=== PATIENT | female | born 1990 | race African-American/Black ===

== ENCOUNTER 2016-09-27 23:29 | Emergency (ER) | payer SELFPAY ==
[~2016-09-27] VITALS: Ht 170.2 cm; Wt 65.8 kg
[~2016-09-27 23:29] MED LIST: BENZ100C PO; CYCL10TA2 PO; NAPR250T2 PO; ONDA4TAB10 SL; PRED50TA PO
[2016-09-27 23:35] VITALS: BP 129/80
[2016-09-28] MEDS ORDERED: IBUPROFEN 400 MG TABLET. PO ONE
[2016-09-28] MEDS ORDERED: ONDANSETRON ODT 4 MG TAB.RAPDIS. PO ONE
[2016-09-28] MEDS ORDERED: PROM12.56 PO (00:06)
--- NOTE | 2016-09-28 00:06 | PHYS DOC ---
Past Medical History Past Medical History: No Pertinent History, Other Additional Past Medical Histor: "high troponin" Past Surgical History: No Surgical History Alcohol Use: None Drug Use: None Adult General Chief Complaint Chief Complaint: NAUSEA/VOMITING/DIARRHA HPI HPI Patient is a 26 year old female who presents with nausea and vomiting of nonbloody nonbilious emesis that started last night after eating at a restaurant. She notes some intermittent crampy abdominal pain as well. She denies fever or chills, diarrhea, bloody stools, vaginal leading her discharge, dysuria, hematuria, back pain, chest pain, cough, sick contacts. She has taken no medications at home. Review of Systems Review of Systems Constitutional: Denies fever or chills [] Eyes: Denies change in visual acuity, redness, or eye pain [] HENT: Denies nasal congestion or sore throat [] Respiratory: Denies cough or shortness of breath [] Cardiovascular: No additional information not addressed in HPI [] GI: Denies bloody stools or diarrhea [] : Denies dysuria or hematuria [] Musculoskeletal: Denies back pain or joint pain [] Integument: Denies rash or skin lesions [] Neurologic: Denies headache, focal weakness or sensory changes [] Endocrine: Denies polyuria or polydipsia [] Current Medications Current Medications Current Medications Medications (Trade) Dose Ordered Sig/Andreina Start Time Stop Time Status Last Admin Dose Admin Ibuprofen (Motrin) 400 mg 1X ONCE 09/28/16 00:00 09/28/16 00:01 DC Ondansetron HCl (Zofran Odt) 4 mg 1X ONCE 09/28/16 00:00 09/28/16 00:01 DC Allergies Allergies Allergies Coded Allergies Type Severity Reaction Last Updated Verified acetaminophen Allergy Intermediate 02/10/14 Yes hydrocodone Allergy Intermediate 02/10/14 Yes Physical Exam Physical Exam Constitutional: Well developed, well nourished, no acute distress, non-toxic appearance. [] HENT: Normocephalic, atraumatic, bilateral external ears normal, oropharynx moist, nose normal. [] Eyes: PERRLA, EOMI. [] Neck: Normal range of motion, supple. [] Cardiovascular:Heart rate regular rhythm [] Lungs & Thorax: Bilateral breath sounds clear to auscultation [] Abdomen: Bowel sounds normal, soft, no tenderness. [] Skin: Warm, dry, no erythema, no rash. [] Back: No tenderness, no CVA tenderness. [] Extremities: No tenderness, ROM intact, no edema. [] Neurologic: Alert and oriented X 3, normal motor function, normal sensory function, no focal deficits noted. [] Psychologic: Affect normal, judgement normal, mood normal. [] Current Patient Data Lab Values Laboratory Tests Test 09/27/16 22:51 POC Urine HCG, Qualitative Hcg negative (Negative) Course & Med Decision Making Course & Med Decision Making Discussed supportive care. Return precautions given. She understands and agrees with plan. Dragon Disclaimer Dragon Disclaimer This electronic medical record was generated, in whole or in part, using a voice recognition dictation system. Departure Departure Impression: Primary Impression: Nausea and vomiting Disposition: HOME, SELF-CARE Condition: STABLE Referrals: NO PCP (PCP) Patient Instructions: Nausea and Vomiting, [id number] Additional Instructions: Take promethazine as needed for nausea. Take ibuprofen as needed for pain. Follow-up with your primary care doctor within one week. Return for any concerns. Scripts Promethazine Hcl (PROMETHAZINE HCL) 12.5 Mg Tablet 1 TAB PO Q6-8HRS for NAUSEA/VOMITING, #10 TAB 0 Refills Prov: El SEO MD 09/28/16 Problem Qualifiers Primary Impression: Nausea and vomiting Vomiting type: unspecified Vomiting Intractability: non-intractable Qualified Codes: R11.2 - Nausea with vomiting, unspecified El SEO MD Sep 28, 2016 00:06
== END 2016-09-28 00:35 | disposition home or self-care (01) ==
LOC: ER 23:29
DX: R11.2 Nausea with vomiting, unspecified (principal); R10.9 Unspecified abdominal pain; Z88.6 Allergy status to analgesic agent; Z88.5 Allergy status to narcotic agent
CPT/HCPCS: 81025; 99283; Q0162

== ENCOUNTER 2016-11-17 01:46 | Emergency (ER) | payer SELFPAY ==
[~2016-11-17] VITALS: Ht 170.2 cm; Wt 68.0 kg
[~2016-11-17 01:46] MED LIST changes: +PROM12.56 PO
[2016-11-17 02:22] VITALS: BP 119/68
[2016-11-17] MEDS ORDERED: PENICILLIN G BENZATHINE LA 1,200,000 UNIT/2 ML DISP.SYRIN. IM ONE (02:30)
--- NOTE | 2016-11-17 02:30 | PHYS DOC ---
Past Medical History Past Medical History: No Pertinent History, Other Additional Past Medical Histor: "high troponin" Past Surgical History: No Surgical History Additional Information: non smoker Alcohol Use: Occasionally Drug Use: None Adult General Chief Complaint Chief Complaint: SORE THROAT HPI HPI Patient is a 26 year old female who presents with sore throat. With the cough and then developed sore throat on Wednesday. Unknown temperature. No earache but her whole throat hurts. States it hurts to swallow. No skin rash. Review of Systems Review of Systems Constitutional: Denies fever or chills Eyes: Denies change in visual acuity, redness, or eye pain HENT: sore throat; no drooling Respiratory: Some cough, no shortness of breath Cardiovascular: No chest pain GI: Denies abdominal pain, nausea, vomiting, bloody stools or diarrhea : Denies dysuria or hematuria Musculoskeletal: Denies back pain or joint pain Integument: Denies rash or skin lesions Neurologic: Denies headache, focal weakness or sensory changes Current Medications Current Medications Current Medications Medications (Trade) Dose Ordered Sig/Andreina Start Time Stop Time Status Last Admin Dose Admin Penicillin G Benzathine (Bicillin L-A) 1,200,000 unit 1X ONCE 11/17/16 02:30 11/17/16 02:31 DC 11/17/16 02:37 1,200,000 UNIT Allergies Allergies Allergies Coded Allergies Type Severity Reaction Last Updated Verified acetaminophen Allergy Intermediate 02/10/14 Yes hydrocodone Allergy Intermediate 02/10/14 Yes Physical Exam Physical Exam Constitutional: Well developed, well nourished, no acute distress, non-toxic appearance. HENT: Normocephalic, atraumatic, bilateral external ears normal, oropharynx moist, POS pharyngeal exudates; no drooling, nose normal. Eyes: PERRLA, EOMI, conjunctiva normal, no discharge. Neck: Normal range of motion, no tenderness, supple, no stridor. Cardiovascular:Heart rate regular rhythm, no murmur Lungs & Thorax: Bilateral breath sounds clear to auscultation Abdomen: Bowel sounds normal, soft, no tenderness, no masses, no pulsatile masses. Skin: Warm, dry, no erythema, no rash. Back: No tenderness, no CVA tenderness. Extremities: No tenderness, no cyanosis, no clubbing, ROM intact, no edema. Neurologic: Alert and oriented X 3, normal motor function, normal sensory function, no focal deficits noted. Current Patient Data Vital Signs Vital Signs Date Time Temp Pulse Resp B/P (MAP) Pulse Ox O2 Delivery O2 Flow Rate FiO2 11/17/16 02:22 98.3 74 18 97 Room Air 98.3 Lab Values Current Medications Medications (Trade) Dose Ordered Sig/Andreina Route PRN Reason Start Time Stop Time Status Last Admin Dose Admin Penicillin G Benzathine (Bicillin L-A) 1,200,000 unit 1X ONCE IM 11/17/16 02:30 11/17/16 02:31 DC 11/17/16 02:37 1,200,000 UNIT Course & Med Decision Making Course & Med Decision Making differential diagnosis: strep; viral pharyngitis or mono. IM Penicillin dosed; Rx medrol dose rosanna. Rapid strep negative but treated due to bilateral exudative pharyngitis. I have spoken with the patient and/or caregivers. I have explained the patient' s condition, diagnosis and treatment plan based on the information available to me at this time. I have answered the patient's and/or caregiver's questions and addressed any concerns. The patient and/or caregivers have as good an understanding of the patient's diagnosis, condition and treatment plan as can be expected at this point. The patient's condition is stable and appropriate for discharge from the emergency department. The patient will pursue further outpatient evaluation with the primary care physician or other designated or consulting physician as outlined in the discharge instructions. The patient and/or caregivers are agreeable to this plan of care and follow-up instructions have been explained in detail. The patient and/or caregivers have received these instructions in written format and have expressed an understanding of the discharge instructions. The patient and/or caregivers are aware that any significant change in condition or worsening of symptoms should prompt an immediate return to this or the closest emergency department or a call to 911. Malick Disclaimer Dragon Disclaimer This electronic medical record was generated, in whole or in part, using a voice recognition dictation system. Departure Departure Impression: Primary Impression: Pharyngitis, acute Disposition: 01 HOME, SELF-CARE Condition: GOOD Referrals: NO PCP (PCP) Patient Instructions: Viral and Bacterial Pharyngitis Additional Instructions: YOU WERE GIVEN A PENICILLIN SHOT HERE. START THE STEROIDS IN THE AM Scripts Methylprednisolone (MEDROL) 4 Mg Tab.ds.pk 1 PKG PO UD, #1 PKG Prov: GAYATRI JAMA MD 11/17/16 GAYATRI JAMA MD Nov 17, 2016 02:31
[2016-11-17] MEDS ORDERED: METH4TAB2 PO (02:33)
[2016-11-17 07:22] LABS: NEGATIVE OBC STREP NEG; POSITIVE OBC STREP POS
== END 2016-11-17 03:02 | disposition home or self-care (01) ==
LOC: ER 01:46
DX: J02.9 Acute pharyngitis, unspecified (principal); Z88.6 Allergy status to analgesic agent; Z88.5 Allergy status to narcotic agent
CPT/HCPCS: 87070; 87880; 96372; 99283; J0561

== ENCOUNTER 2016-12-31 06:18 | Emergency (ER) | payer SELFPAY ==
[~2016-12-31] VITALS: Ht 170.2 cm; Wt 68.0 kg
[~2016-12-31 06:18] MED LIST changes: +METH4TAB2 PO; -NAPR250T2 PO; +NAPR250T6 PO
--- NOTE | 2016-12-31 06:38 | PHYS DOC ---
Past Medical History Past Medical History: No Pertinent History, Other Additional Past Medical Histor: "high troponin" Past Surgical History: No Surgical History Alcohol Use: Rarely Drug Use: None Adult General Chief Complaint Chief Complaint: Congestion HPI HPI Patient is a 26 year old -[place] female who presents with productive cough and fever. She states yesterday she noticed a fever 101 she's having a cough with yellow sputum. She states she went to work and the nurse practitioner at work thought she probably had bronchitis. She denies any body aches, nausea vomiting or chest pain other than when she is coughing. She bought some cough suppressants and been using these. 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 She denies any past medical history, denies smoking history. She denies any tenderness over her maxillary or frontal sinuses or headache. Review of Systems Review of Systems Constitutional: Denies chills, positive for subjective fevers Eyes: Denies change in visual acuity, redness, or eye pain [] HENT: Denies nasal congestion or sore throat [] Respiratory: Positive for cough Cardiovascular: No additional information not addressed in HPI [] GI: Denies abdominal pain, nausea, vomiting, bloody stools or diarrhea [] : Denies dysuria or hematuria [] Musculoskeletal: Denies back pain or joint pain [] Integument: Denies rash or skin lesions [] Neurologic: Denies headache, focal weakness or sensory changes [] Endocrine: Denies polyuria or polydipsia [] Allergies Allergies Allergies Coded Allergies Type Severity Reaction Last Updated Verified acetaminophen Allergy Intermediate 02/10/14 Yes hydrocodone Allergy Intermediate 02/10/14 Yes Physical Exam Physical Exam Constitutional: Well developed, well nourished, no acute distress, non-toxic appearance. [] HENT: Normocephalic, atraumatic, bilateral external ears normal, oropharynx moist, no oral exudates, nose normal. Non-tender over maxillary and frontal sinuses Eyes: PERRLA, EOMI, conjunctiva normal, no discharge. [] Neck: Normal range of motion, no tenderness, supple, no stridor. [] Cardiovascular:Heart rate regular rhythm, no murmur [] Lungs & Thorax: Bilateral breath sounds clear to auscultation [] Abdomen: Bowel sounds normal, soft, no tenderness, no masses, no pulsatile masses. [] Skin: Warm, dry, no erythema, no rash. [] Back: No tenderness, no CVA tenderness. [] Extremities: No tenderness, no cyanosis, no clubbing, ROM intact, no edema. [] Neurologic: Alert and oriented X 3, normal motor function, normal sensory function, no focal deficits noted. [] Psychologic: Affect normal, judgement normal, mood normal. [] Current Patient Data Vital Signs Vital Signs Date Time Temp Pulse Resp B/P (MAP) Pulse Ox O2 Delivery O2 Flow Rate FiO2 12/31/16 07:10 77 18 110/75 (87) 99 Room Air 12/31/16 06:25 97.8 97.8 Lab Values Laboratory Tests Test 12/31/16 00:00 Influenza Type A Antigen Negative (NEGATIVE) Influenza Type B Antigen Negative (NEGATIVE) EKG EKG [] Radiology/Procedures Radiology/Procedures [facility] [address] [place], [place] [id number] IMAGING REPORT Signed PATIENT: GAIL BROWN ACCOUNT: [id number] : 1990 LOCATION: ER AGE: 26 SEX: F EXAM STATUS: REG ER ORD. PHYSICIAN: JOSE PEREZ MD REASON: soa PROCEDURE: CHEST PA & LATERAL EXAM: Chest 2 views. HISTORY: Cough. COMPARISON: 01/20/2016. FINDINGS: Frontal and lateral views of the chest are obtained. There are no confluent infiltrates. There is no pneumothorax or pleural effusion. The heart is not enlarged. IMPRESSION: 1. No confluent infiltrates. DICTATED and SIGNED BY: MARIA ESTHER GUERRA MD DATE: 12/31/16711 CC: JOSE PEREZ MD; NO PCP ~ Impressions: Bronchitis Course & Med Decision Making Course & Med Decision Making Pertinent Labs and Imaging studies reviewed. (See chart for details) Chest x-ray, vitals, Ruthven influenzal negative. Patient being discharged home and encouraged use [id number] remedies, she being given a work note. She does not have a fever so I think she can go back to work when she feels better. Return precautions given for high fevers, and was weakness, shortness breath or other concerns. Patient's agreeable to the plan and being discharged home at this time. Dragon Disclaimer Dragon Disclaimer This electronic medical record was generated, in whole or in part, using a voice recognition dictation system. Departure Departure Impression: Primary Impression: Upper respiratory infection Disposition: 01 HOME, SELF-CARE Condition: STABLE Referrals: NO PCP (PCP) Patient Instructions: Acute Bronchitis, [id number] Additional Instructions: The chest x-ray and rapid influenza swab did not show any acute abnormality's. You likely have bronchitis and this is a viral syndrome that should pass over the next several days. You try [id number]-qjofiup remedies such as cough suppressants, Tylenol as needed. Your being given a work note. You'll back to work when you feel better and you don't have a fever. Here he did not have a fever. Return ER for severe pain, high fevers, shortness of breath, or other concerns. Problem Qualifiers Primary Impression: Upper respiratory infection URI type: unspecified viral URI Qualified Codes: J06.9 - Acute upper respiratory infection, unspecified; B97.89 - Other viral agents as the cause of diseases classified elsewhere JOSE PEREZ MD Dec 31, 2016 06:38
[2016-12-31 07:10] VITALS: BP 110/75
--- NOTE | 2016-12-31 07:15 | RAD ---
EXAM: Chest 2 views. HISTORY: Cough. COMPARISON: 01/20/2016. FINDINGS: Frontal and lateral views of the chest are obtained. There are no confluent infiltrates. There is no pneumothorax or pleural effusion. The heart is not enlarged. IMPRESSION: 1. No confluent infiltrates.
[2016-12-31 08:17] LABS: OBC FLU VALID
== END 2016-12-31 08:31 | disposition home or self-care (01) ==
LOC: ER 06:18
DX: J06.9 Acute upper respiratory infection, unspecified (principal); B97.89 Other viral agents as the cause of diseases classified elsewhere; Z88.5 Allergy status to narcotic agent; Z88.6 Allergy status to analgesic agent
CPT/HCPCS: 71020; 87804; 99285-25

== ENCOUNTER 2017-01-09 07:13 | Emergency (ER) | payer SELFPAY ==
[~2017-01-09] VITALS: Ht 170.2 cm; Wt 68.0 kg
[2017-01-09 07:37] VITALS: BP 130/70
[2017-01-09 07:44] LABS: BILIRUBIN,URINE NEGATIVE (NEG); GLUCOSE,URINE NEGATIVE (NEG); NITRITE,URINE NEGATIVE (NEG); PROTEIN,URINE NEGATIVE (NEG-TRACE); UROBILINOGEN,URINE 0.2 mg/dL (0.2 mg/dL)
--- NOTE | 2017-01-09 07:53 | PHYS DOC ---
Past Medical History Past Medical History: No Pertinent History, Other Additional Past Medical Histor: "high troponin" Past Surgical History: No Surgical History Alcohol Use: Rarely Drug Use: None Adult General Chief Complaint Chief Complaint: VAGINAL BLEEDING HPI HPI Patient is a 26 year old female presents to the emergency department with a history of vaginal bleeding that started 2 days ago. Patient states in the last 24 hours she had light headedness and dizziness. She states last night she had a large amount of vaginal bleeding that soaked thru the bed linen. She states she has not had sexual intercourse for the last year. Denies vaginal discharge other than bleeding. She states she is on the depo and has been for some time. She states she has not had a menstrual cycle since she started depo. She denies any STD hx. Patient denies lower abdominal cramping. Review of Systems Review of Systems Constitutional: Denies fever or chills [] Eyes: Denies change in visual acuity, redness, or eye pain [] HENT: Denies nasal congestion or sore throat [] Respiratory: Denies cough or shortness of breath [] Cardiovascular: No additional information not addressed in HPI [] GI: lower abdominal pain cramping, denies nausea, vomiting, bloody stools or diarrhea [] : Denies dysuria or hematuria. C/o vaginal bleeding Musculoskeletal: Denies back pain or joint pain [] Integument: Denies rash or skin lesions [] Neurologic: Denies headache, focal weakness or sensory changes [] Endocrine: Denies polyuria or polydipsia [] Allergies Allergies Allergies Coded Allergies Type Severity Reaction Last Updated Verified acetaminophen Allergy Intermediate 02/10/14 Yes hydrocodone Allergy Intermediate 02/10/14 Yes Physical Exam Physical Exam Constitutional: Well developed, well nourished, no acute distress, non-toxic appearance. [] HENT: Normocephalic, atraumatic, bilateral external ears normal, oropharynx moist, no oral exudates, nose normal. [] Eyes: PERRLA, EOMI, conjunctiva normal, no discharge. [] Neck: Normal range of motion, no tenderness, supple, no stridor. [] Cardiovascular:Heart rate regular rhythm, no murmur [] Lungs & Thorax: Bilateral breath sounds clear to auscultation [] Abdomen: Bowel sounds normal, soft, no tenderness, no masses, no pulsatile masses. [] Skin: Warm, dry, no erythema, no rash. [] Extremities: No tenderness, no cyanosis, no clubbing, ROM intact, no edema. [] Neurologic: Alert and oriented X 3, normal motor function, normal sensory function, no focal deficits noted. [] Psychologic: Affect normal, judgement normal, mood normal. [] Vaginal exam completed with PETTY Mendenhall at bedside. Speculum exam with minimal vaginal bleeding noted. Manual exam with bilateral and CMT noted. Current Patient Data Vital Signs Vital Signs Date Time Temp Pulse Resp B/P (MAP) Pulse Ox O2 Delivery O2 Flow Rate FiO2 01/09/17 07:37 98.3 71 18 130/70 (90) 71 Room Air 98.3 Lab Values Laboratory Tests Test 01/09/17 07:30 01/09/17 07:34 01/09/17 07:53 Urine Collection Type Unknown Urine Color Yellow Urine Clarity Clear Urine pH 6.0 Urine Specific Ainsworth 1.020 Urine Protein Negative mg/dL (NEG-TRACE) Urine Glucose (UA) Negative mg/dL (NEG) Urine Ketones (Stick) Negative mg/dL (NEG) Urine Blood Moderate (NEG) Urine Nitrite Negative (NEG) Urine Bilirubin Negative (NEG) Urine Urobilinogen Dipstick 0.2 mg/dL (0.2 mg/dL) Urine Leukocyte Esterase Negative (NEG) Urine RBC Occ /HPF (0-2) Urine WBC 0 /HPF (0-4) Urine Squamous Epithelial Cells Few /LPF Urine Bacteria 0 /HPF (0-FEW) Urine Mucus Mod /LPF POC Urine HCG, Qualitative Hcg negative (Negative) White Blood Count 6.2 x10^3/uL (4.0-11.0) Red Blood Count 3.94 x10^6/uL (3.50-5.40) Hemoglobin 13.7 g/dL (12.0-15.5) Hematocrit 40.7 % (36.0-47.0) Mean Corpuscular Volume 103 fL (79-100) H Mean Corpuscular Hemoglobin 35 pg (25-35) Mean Corpuscular Hemoglobin Concent 34 g/dL (31-37) Red Cell Distribution Width 12.6 % (11.5-14.5) Platelet Count 259 x10^3/uL (140-400) Neutrophils (%) (Auto) 56 % (31-73) Lymphocytes (%) (Auto) 35 % (24-48) Monocytes (%) (Auto) 8 % (0-9) Eosinophils (%) (Auto) 1 % (0-3) Basophils (%) (Auto) 0 % (0-3) Neutrophils # (Auto) 3.4 x10^3uL (1.8-7.7) Lymphocytes # (Auto) 2.2 x10^3/uL (1.0-4.8) Monocytes # (Auto) 0.5 x10^3/uL (0.0-1.1) Eosinophils # (Auto) 0.1 x10^3/uL (0.0-0.7) Basophils # (Auto) 0.0 x10^3/uL (0.0-0.2) Laboratory Tests 01/09/17 07:53 Microbiology 01/09/17 Wet Prep - Final, Complete EKG EKG [] Radiology/Procedures Radiology/Procedures [] [address] [place], [place] [id number] IMAGING REPORT Signed PATIENT: GAIL BROWN ACCOUNT: [id number] : 1990 LOCATION: ER AGE: 26 SEX: F EXAM STATUS: REG ER ORD. PHYSICIAN: DRU FAIRCHILD APRN REASON: vaginal bleeding irregular, cramping, pelvic pain PROCEDURE: PELVIS W/TV Pelvic ultrasound, 01/09/2017: History: Heavy bleeding Transabdominal and and transvaginal scans were obtained. The pelvic structures were poorly visualized on the transabdominal scans due to lack of bladder distention. The transvaginal scans show the uterus to measure approximately 5.6 cm in length. There is a 2.8 cm mildly heterogeneous mass in the myometrium posteriorly with mild distortion of the central uterine echo complex. This is most likely a uterine fibroid. The central uterine echo complex was not clearly delineated, however, it does not appear to be thickened. The ovaries are of normal size. Small follicular cysts are evident in the ovaries. There is blood flow in both ovaries. No adnexal mass is seen. There is a trace amount of free fluid in the pelvis. This amount of fluid can be on a physiologic basis. IMPRESSION: Small uterine mass most compatible with a fibroid. DICTATED and SIGNED BY: ALEJANDRA ORLANDO MD DATE: 01/09/17 1014 CC: DRU FAIRCHILD APRN; NO PCP; NON,STAFF ~ Course & Med Decision Making Course & Med Decision Making Pertinent Labs and Imaging studies reviewed. (See chart for details) Patient's urine was negative for , urine was positive for leukocyte Estrace small amount. Patient will be provided with Macrobid. Patient did have an ultrasound identified fibroids. Patient will be discharged home with recommendations to follow-up with PRIMARY EDUCATION PROFESSOR within the next week. Patient was provided with information in regards to fibroids. Patient will be discharged home with recommendations to drink plenty of fluids such as water and cranberry juice. Avoid cranberry juice cocktail, carbonated beverages, citrus fruits, alcohol or caffeine as these are considered irritants to the bladder. Patient agrees with discharge instructions treatment regimens and follow-up recommendations. Signs and symptoms to return back to emergency department been provided. All questions and concerns have been answered at patient's bedside. [] Dragon Disclaimer Dragon Disclaimer This electronic medical record was generated, in whole or in part, using a voice recognition dictation system. Departure Departure Impression: Primary Impression: Uterine fibroid Additional Impression: UTI (urinary tract infection) Disposition: 01 HOME, SELF-CARE Condition: STABLE Referrals: NO PCP (PCP) RAMÓN MOLINA MD Patient Instructions: Urinary Tract Infection, Huoe-te-Cvoy, Uterine Fibroid, [id number] Additional Instructions: Activity as tolerated. Medication as prescribed. Drink plenty of fluids such as water and cranberry juice. Avoid cranberry juice cocktail, carbonate beverages, citrus fruits, alcohol, and caffeine as these are considered irritants to the bladder. Follow-up with PRIMARY EDUCATION PROFESSOR within the next week. Return back to emergency prior signs symptoms of become worse. Scripts Nitrofurantoin Monohyd/M-Cryst (MACROBID 100 MG CAPSULE) 100 Mg Capsule 1 CAP PO BID, #14 CAP Prov: DRU FAIRCHILD APRN 01/09/17 Problem Qualifiers Primary Impression: Uterine fibroid Uterine leiomyoma location: unspecified location Qualified Codes: D25.9 - Leiomyoma of uterus, unspecified Additional Impression: UTI (urinary tract infection) Urinary tract infection type: site unspecified Hematuria presence: without hematuria Qualified Codes: N39.0 - Urinary tract infection, site not specified DRU FAIRCHILD APRN Jan 09, 2017 07:53
[2017-01-09 08:07] LABS: BACTERIA,URINE 0 /HPF (0-FEW); RBC,URINE OCC /HPF (0-2); SQUAMOUS EPITHELIAL CELL,UR FEW /LPF; WBC,URINE 0 /HPF (0-4)
[2017-01-09 09:34] LABS: BASO % 0 % (0-3); EOS % 1 % (0-3); HEMATOCRIT 40.7 % (36.0-47.0); HEMOGLOBIN 13.7 g/dL (12.0-15.5); LYMPH # 2.2 x10^3/uL (1.0-4.8); LYMPH % 35 % (24-48); MEAN CORPUSCULAR HEMOGLOBIN 35 pg (25-35); MEAN CORPUSCULAR HGB CONC 34 g/dL (31-37); MEAN CORPUSCULAR VOLUME 103 fL (79-100); MONO % 8 % (0-9); NEUT % 56 % (31-73); PLATELET COUNT 259 x10^3/uL (140-400); RED BLOOD COUNT 3.94 x10^6/uL (3.50-5.40); RED CELL DISTRIBUTION WIDTH 12.6 % (11.5-14.5); WHITE BLOOD COUNT 6.2 x10^3/uL (4.0-11.0)
--- NOTE | 2017-01-09 10:21 | RAD ---
Pelvic ultrasound, 01/09/2017: History: Heavy bleeding Transabdominal and and transvaginal scans were obtained. The pelvic structures were poorly visualized on the transabdominal scans due to lack of bladder distention. The transvaginal scans show the uterus to measure approximately 5.6 cm in length. There is a 2.8 cm mildly heterogeneous mass in the myometrium posteriorly with mild distortion of the central uterine echo complex. This is most likely a uterine fibroid. The central uterine echo complex was not clearly delineated, however, it does not appear to be thickened. The ovaries are of normal size. Small follicular cysts are evident in the ovaries. There is blood flow in both ovaries. No adnexal mass is seen. There is a trace amount of free fluid in the pelvis. This amount of fluid can be on a physiologic basis. IMPRESSION: Small uterine mass most compatible with a fibroid.
[2017-01-09] MEDS ORDERED: NITR100C62 PO (10:38)
== END 2017-01-09 10:49 | disposition home or self-care (01) ==
LOC: ER 07:13
DX: D25.9 Leiomyoma of uterus, unspecified (principal); N39.0 Urinary tract infection, site not specified; Z88.6 Allergy status to analgesic agent; Z88.5 Allergy status to narcotic agent
CPT/HCPCS: 36415; 76830; 76856; 81001; 81025; 85025; 87491; 87591; 99285; Q0111

== ENCOUNTER 2017-05-08 21:12 | Emergency (ER) | payer BC ==
[2017-05-08] MEDS: IBUPROFEN 800 MG TABLET. PO ×2 (21:42)
== END 2017-05-08 21:45 | disposition home or self-care (01) ==
LOC: ER 21:12
DX: K05.10 Chronic gingivitis, plaque induced (principal); Z88.6 Allergy status to analgesic agent; Z88.5 Allergy status to narcotic agent
CPT/HCPCS: 99283

== ENCOUNTER 2017-05-29 20:14 | Emergency (ER) | payer BC ==
[2017-05-29 20:36] LABS: BILIRUBIN,URINE NEGATIVE (NEG); COLOR,URINE YELLOW; GLUCOSE,URINE NEGATIVE (NEG); NITRITE,URINE NEGATIVE (NEG); PROTEIN,URINE NEGATIVE (NEG-TRACE)
[2017-05-29 20:42] LABS: NEG OBC UR NEG; POS OBC UR POS; U PREG PATIENT NEGATIVE (NEG)
[2017-05-29 20:48] LABS: CLARITY,URINE CLEAR
[2017-05-29 20:50] LABS: BACTERIA,URINE FEW /HPF (0-FEW); RBC,URINE RARE /HPF (0-2); SQUAMOUS EPITHELIAL CELL,UR MOD /LPF; WBC,URINE 0 /HPF (0-4)
== END 2017-05-29 21:18 | disposition home or self-care (01) ==
LOC: ER 20:14
DX: N89.8 Other specified noninflammatory disorders of vagina (principal); Z88.5 Allergy status to narcotic agent
CPT/HCPCS: 81001; 81025; 87491; 87591; 99284

== ENCOUNTER 2018-02-09 03:02 | Emergency (ER) | payer SELFPAY ==
[~2018-02-09] VITALS: Ht 170.2 cm; Wt 75.3 kg
[2018-02-09 03:02] VITALS: BP 116/58
[~2018-02-09 03:02] MED LIST changes: +CEPH500T PO; +FLUC150T PO; +HYDR-971 PO; +NAPR-683 PO; +NITR100C62 PO; +PENI500T PO
--- NOTE | 2018-02-09 03:04 | PHYS DOC ---
Past Medical History Past Medical History: No Pertinent History, Other Additional Past Medical Histor: "high troponin" Past Surgical History: Other Additional Past Surgical Histo: L INDEX FINGER Additional Information: Nonsmoker Alcohol Use: None Drug Use: None Adult General Chief Complaint Chief Complaint: DENTAL PROBLEM HPI HPI Patient is a 27 year old female presents to the ED due to dental pain. She states that yesterday she ate some stale chips the pain started thereafter. She made a dentist appointment for Wednesday, but the pain got too severe to tolerate which caused her to come to the ED. She rates the severity of the pain as 10/10 , radiating to her head. She denies other associated symptoms, including fever. She denies any trauma or accidents to her mouth, as well as bleeding or discharge from the lower left molar region. Denies . Review of Systems Review of Systems Constitutional: Denies fever or chills [] HENT: Denies nasal congestion or sore throat. Reports left lower dental pain. Complete systems were reviewed and found to be within normal limits, except as documented in this note. Current Medications Current Medications Current Medications Medications (Trade) Dose Ordered Sig/Andreina Start Time Stop Time Status Last Admin Dose Admin Bupivacaine HCl/ Epinephrine Bitart (Sensorcain-Mpf Epi 0.5%-1:[id number]) 30 ml 1X ONCE 02/09/18 03:30 02/09/18 03:31 DC 02/09/18 03:32 30 ML Dexamethasone (Decadron) 10 mg 1X ONCE 02/09/18 03:30 02/09/18 03:31 DC 02/09/18 03:27 10 MG Penicillin V Potassium (Veetid) 500 mg 1X ONCE 02/09/18 03:15 02/09/18 03:22 DC 02/09/18 03:27 500 MG Allergies Allergies Allergies Coded Allergies Type Severity Reaction Last Updated Verified hydrocodone Allergy Intermediate 02/10/14 Yes Physical Exam Physical Exam Constitutional: Well developed, well nourished, no acute distress, non-toxic appearance. [] HENT: Normocephalic, atraumatic,, oropharynx moist, moderate dental cavities in various teeth, including left lower molar. Eyes: Conjunctiva normal, no discharge. [] Neck: Normal range of motion, no tenderness, no lymphadenopathy Lungs & Thorax: Bilateral breath sounds clear to auscultation [] Skin: Warm, dry, no erythema, no rash. [] Neurologic: Alert and oriented X 3, Psychologic: Affect normal, judgement normal, mood normal. [] Current Patient Data Vital Signs Vital Signs Date Time Temp Pulse Resp B/P (MAP) Pulse Ox O2 Delivery O2 Flow Rate FiO2 02/09/18 03:02 98.1 75 14 116/58 (77) 98 Room Air 98.1 EKG EKG [] Radiology/Procedures Radiology/Procedures [] Course & Med Decision Making Course & Med Decision Making 27-year-old female presents to the ED due to dental pain. Dental mony noted to area. Dental block provided for anesthesia, as well as a course of antibiotics and dexamethasone PO1. Patient stable for discharge with outpatient follow-up with PCP. Discussed findings and plan with patient, who acknowledges understanding and agreement. Dragon Disclaimer Dragon Disclaimer This electronic medical record was generated, in whole or in part, using a voice recognition dictation system. Departure Departure Impression: Primary Impression: Dental caries Additional Impression: Dentalgia Disposition: HOME, SELF-CARE Condition: IMPROVED Referrals: NO PCP (PCP) Patient Instructions: Dental Caries-Brief, Toothache-Brief Scripts Fluconazole (DIFLUCAN) 150 Mg Tablet 1 TAB PO ONCE, #2 TAB Take initial dose today and then secondary dose after completion of antibiotics. Prov: HARPER PYLE DO 02/09/18 Chlorhexidine Gluconate (PERIDEX) 15 Ml Mouthwash 15 ML PO BID, #946 ML Prov: HARPER PYLE DO 02/09/18 Penicillin V Potassium (PENICILLIN V POTASSIUM) 500 Mg Tablet 1 TAB PO QID for 7 Days, #28 TAB Prov: HARPER PYLE DO 02/09/18 Additional Procedures Progress Dental block Procedure performed by physician and medical student. Timeout performed. Hand hygiene utilized. 0.5% bupivacaine with epinephrine infiltrated x 5ml to left inferior alveolar nerve with interval resolution of symptoms. Pt tolerated the procedure well and without difficulty. Problem Qualifiers HARPER PYLE DO Feb 09, 2018 03:04
[2018-02-09] MEDS ORDERED: CHLO15MO2 PO (03:15)
[2018-02-09] MEDS ORDERED: PENICILLIN V K 250 MG TABLET. PO ONE (03:15)
[2018-02-09] MEDS ORDERED: PENI500T PO (03:15)
[2018-02-09] MEDS ORDERED: FLUC150T PO (03:25)
[2018-02-09] MEDS ORDERED: DEXAMETHASONE 4 MG TABLET PO ONE (03:30)
[2018-02-09] MEDS ORDERED: BUPIVAC MPF-EPI 0.5%-1:200000 30 ML VIAL. INJ ONE (03:30)
== END 2018-02-09 03:46 | disposition home or self-care (01) ==
LOC: ER 03:02
DX: K02.9 Dental caries, unspecified (principal); Z88.5 Allergy status to narcotic agent
CPT/HCPCS: 64400; 99284; J3490; J8540

== ENCOUNTER 2019-05-12 07:25 | Emergency (ER) | payer SELFPAY ==
[~2019-05-12] VITALS: Ht 170.2 cm; Wt 77.2 kg
[~2019-05-12 07:25] MED LIST changes: +CHLO15MO2 PO; +HYDR-3164 PO; -HYDR-971 PO; -PROM12.56 PO; +PROM12.58 PO
[2019-05-12] MEDS ORDERED: ASPIRIN 325 MG TABLET PO ONE (08:00)
--- NOTE | 2019-05-12 08:03 | PHYS DOC ---
Past Medical History Past Medical History: No Pertinent History, Other Additional Past Medical Histor: "high troponin" Past Surgical History: Other Additional Past Surgical Histo: L INDEX FINGER Smoking Status: Never Smoker Alcohol Use: None Drug Use: None Adult General Chief Complaint Chief Complaint: CHEST PAIN [facility] HPI Patient is a 28 year old female without history of medical problem who presents with complaint of chest pain. She complaining of intermittent episodes of substernal aching chest pain for the last 1 week that usually happens several times a day and lasts for several hours and getting better with baby aspirin. Patient denies radiation of pain, nausea, dizziness, palpitation, cough and congestion, fever and chills. Patient complaining of intermittent episodes of shortness of breath and generalized weakness during episodes of chest pain. Patient states she had the same chest pain 3- 4 years ago and was admitted for one week at Hospital because of elevation of troponin and had extensive evaluation without abnormal finding. Patient complaining of unintentional losing 25 pounds for the last 2 weeks. Review of Systems Review of Systems Constitutional: Denies fever or chills [] Eyes: Denies change in visual acuity, redness, or eye pain [] HENT: Denies nasal congestion or sore throat [] Respiratory: Denies cough, reports shortness of breath [] Cardiovascular: No additional information not addressed in HPI [] GI: Denies abdominal pain, nausea, vomiting, bloody stools or diarrhea [] : Denies dysuria or hematuria [] Musculoskeletal: Denies back pain or joint pain [] Integument: Denies rash or skin lesions [] Neurologic: Denies headache, focal weakness or sensory changes [] Endocrine: Denies polyuria or polydipsia [] All other systems were reviewed and found to be within normal limits, except as documented in this note. Current Medications Current Medications Current Medications Medications (Trade) Dose Ordered Sig/Andreina Start Time Stop Time Status Last Admin Dose Admin Aspirin (Areli Aspirin) 325 mg 1X ONCE 05/12/19 08:00 05/12/19 08:01 DC 05/12/19 08:46 325 MG Lorazepam (Ativan Inj) 0.5 mg 1X ONCE 05/12/19 08:15 05/12/19 08:16 DC 05/12/19 08:46 0.5 MG Allergies Allergies Allergies Coded Allergies Type Severity Reaction Last Updated Verified hydrocodone Allergy Intermediate 02/10/14 Yes Physical Exam Physical Exam Constitutional: Well developed, well nourished, mild distress, non-toxic appearance. [] HENT: Normocephalic, atraumatic, bilateral external ears normal, oropharynx moist, no oral exudates, nose normal. [] Eyes: PERRLA, EOMI, conjunctiva normal, no discharge. [] Neck: Normal range of motion, no tenderness, supple, no stridor. [] Cardiovascular:Heart rate regular rhythm, no murmur [] Lungs & Thorax: Bilateral breath sounds clear to auscultation [] Abdomen: Bowel sounds normal, soft, no tenderness, no masses, no pulsatile masses. [] Skin: Warm, dry, no erythema, no rash. [] Back: No tenderness, no CVA tenderness. [] Extremities: No tenderness, no cyanosis, no clubbing, ROM intact, no edema. [] Neurologic: Alert and oriented X 3, normal motor function, normal sensory function, no focal deficits noted. [] Psychologic: Affect anxious, judgement normal, mood normal. [] Current Patient Data Vital Signs Vital Signs Date Time Temp Pulse Resp B/P (MAP) Pulse Ox O2 Delivery O2 Flow Rate FiO2 05/12/19 10:44 66 105/57 (73) 99 Room Air 05/12/19 07:30 98.0 17 98.0 Lab Values Laboratory Tests Test 05/12/19 08:08 05/12/19 09:30 White Blood Count 4.5 x10^3/uL (4.0-11.0) Red Blood Count 4.07 x10^6/uL (3.50-5.40) Hemoglobin 13.5 g/dL (12.0-15.5) Hematocrit 40.5 % (36.0-47.0) Mean Corpuscular Volume 99 fL (79-100) Mean Corpuscular Hemoglobin 33 pg (25-35) Mean Corpuscular Hemoglobin Concent 33 g/dL (31-37) Red Cell Distribution Width 12.8 % (11.5-14.5) Platelet Count 227 x10^3/uL (140-400) Neutrophils (%) (Auto) 45 % (31-73) Lymphocytes (%) (Auto) 44 % (24-48) Monocytes (%) (Auto) 8 % (0-9) Eosinophils (%) (Auto) 2 % (0-3) Basophils (%) (Auto) 1 % (0-3) Neutrophils # (Auto) 2.0 x10^3/uL (1.8-7.7) Lymphocytes # (Auto) 2.0 x10^3/uL (1.0-4.8) Monocytes # (Auto) 0.4 x10^3/uL (0.0-1.1) Eosinophils # (Auto) 0.1 x10^3/uL (0.0-0.7) Basophils # (Auto) 0.0 x10^3/uL (0.0-0.2) Prothrombin Time 14.2 SEC (11.7-14.0) H Prothrombin Time INR 1.1 (0.8-1.1) D-Dimer (Audra) 0.27 ug/mlFEU (0.00-0.50) Sodium Level 143 mmol/L (136-145) Potassium Level 3.6 mmol/L (3.5-5.1) Chloride Level 103 mmol/L (98-107) Carbon Dioxide Level 28 mmol/L (21-32) Anion Gap 12 (6-14) Blood Urea Nitrogen 5 mg/dL (7-20) L Creatinine 0.8 mg/dL (0.6-1.0) Estimated GFR (Cockcroft-Gault) 102.6 BUN/Creatinine Ratio 6 (6-20) Glucose Level 104 mg/dL (70-99) H Calcium Level 9.0 mg/dL (8.5-10.1) Magnesium Level 2.0 mg/dL (1.8-2.4) Total Bilirubin 1.4 mg/dL (0.2-1.0) H Aspartate Amino Transferase (AST) 15 U/L (15-37) Alanine Aminotransferase (ALT) 12 U/L (14-59) L Alkaline Phosphatase 98 U/L (46-116) Creatine Kinase 106 U/L (26-192) Troponin I Quantitative < 0.017 ng/mL (0.000-0.055) GM-Enw-U-Type Natriuretic Peptide 14 pg/mL (0-124) Total Protein 7.0 g/dL (6.4-8.2) Albumin 3.5 g/dL (3.4-5.0) Albumin/Globulin Ratio 1.0 (1.0-1.7) Lipase 77 U/L (73-393) Urine Collection Type Unknown Urine Color Yellow Urine Clarity Clear Urine pH 7.0 Urine Specific Rives 1.010 Urine Protein Negative mg/dL (NEG-TRACE) Urine Glucose (UA) Negative mg/dL (NEG) Urine Ketones (Stick) Negative mg/dL (NEG) Urine Blood Small (NEG) Urine Nitrite Negative (NEG) Urine Bilirubin Negative (NEG) Urine Urobilinogen Dipstick 1.0 mg/dL (0.2 mg/dL) Urine Leukocyte Esterase Negative (NEG) Urine RBC 1-2 /HPF (0-2) Urine WBC Rare /HPF (0-4) Urine Squamous Epithelial Cells Mod /LPF Urine Bacteria 0 /HPF (0-FEW) Urine Opiates Screen Neg (NEG) Urine Methadone Screen Neg (NEG) Urine Barbiturates Neg (NEG) Urine Phencyclidine Screen Neg (NEG) Urine Amphetamine/Methamphetamine Neg (NEG) Urine Benzodiazepines Screen Neg (NEG) Urine Cocaine Screen Neg (NEG) Urine Cannabinoids Screen Neg (NEG) Urine Ethyl Alcohol Neg (NEG) Laboratory Tests 05/12/19 08:08 Laboratory Tests 05/12/19 08:08 EKG EKG EKG interpreted by me. EKG at 0734 showed normal sinus rhythm at rate of 80, normal FL and QT intervals, no acute ST and T-wave elevation. Radiology/Procedures Radiology/Procedures [facility] [address] [place] [address] IMAGING REPORT Signed PATIENT: GAIL BROWN ACCOUNT: [id number] : 1990 LOCATION: ER AGE: 28 SEX: F EXAM STATUS: PRE ER ORD. PHYSICIAN: ARCELIA TIPTON MD REASON: Mid Epigastric Pain; chest pain PROCEDURE: ABDOMEN LTD EXAM: Abdomen sonogram. HISTORY: Pain. TECHNIQUE: Sonographic imaging of the abdomen was performed. COMPARISON: CT dated 01/20/2016. FINDINGS: The liver is normal in size. No focal hepatic lesion is seen. The common bile duct is normal in caliber. The gallbladder, right kidney and inferior vena cava are unremarkable. The pancreas is partially obscured due to bowel gas. IMPRESSION: Unremarkable abdomen sonogram, slightly limited due to bowel gas. Electronically signed by: Meena Mane MD (05/12/2019 8:45 AM) [facility] DICTATED and SIGNED BY: MEENA MANE MD DATE: 05/12/19 0845 [facility] [address] [place] [address] IMAGING REPORT Signed PATIENT: GAIL BROWN ACCOUNT: [id number] : 1990 LOCATION: ER AGE: 28 SEX: F EXAM STATUS: PRE ER ORD. PHYSICIAN: ARCELIA TIPTON MD REASON: chest pain PROCEDURE: CHEST PA & LATERAL CHEST PA LATERAL History: Chest pain Comparison: Two-view chest December 31, 2016. Findings: The cardiomediastinal silhouette is normal. Pulmonary vasculature is normal. The lungs are clear. No pleural effusion or pneumothorax is seen. There is no acute bone abnormality. IMPRESSION: No acute cardiopulmonary process. Electronically signed by: Andres Leon MD (05/12/2019 8:17 AM) [id number] DICTATED and SIGNED BY: ANDRES LEON MD DATE: 05/12/19 0817 Course & Med Decision Making Course & Med Decision Making Pertinent Labs and Imaging studies reviewed. (See chart for details) Evaluation of patient in ER showed 8-year-old female patient with complaining of intermittent episodes of chest pain. Patient also complaining of weight loss. Patient was anxious for definitive treatment. Patient had unremarkable d-dimer, cardiac enzymes, chest x-ray, gallbladder ultrasound and labs. Patient was advised to follow-up with her primary care physician regarding weight loss. Prescription for hydroxyzine for anxiety was given.discharge: I've spoken with the patient and/or caregivers. I've explained the patient's condition, diagnosis and treatment plan based on information available to me at this time. I've answered the patient's and/or caregivers questions and addressed any concerns. The patient and/or caregivers have a good understanding the patient's diagnosis, condition and treatment plan as can be expected at this point. Vital signs have been stabilized. The patient's condition is stable for discharge from the emergency department. The patient will pursue further outpatient evaluation with her primary care provider or other designated consulting physician as outlined in the discharge instructions. Patient and/or caregivers are agreeable to this plan of care and follow-up instructions have been explained in detail. The patient and/or caregivers have received these instructions in written format and expressed understanding of these discharge instructions. The patient and her caregivers are aware that if any significant change in condition or worsening of symptoms should prompt him to immediately return to this of the closest emergency de partment. If an emergent department is not readily available I would encourage him to call 911. Malick Disclaimer Dragon Disclaimer This electronic medical record was generated, in whole or in part, using a voice recognition dictation system. Departure Departure Impression: Primary Impression: Anxiety about health Additional Impression: Non-cardiac chest pain Disposition: HOME, SELF-CARE (at 0 954) Condition: IMPROVED Referrals: NO PCP (PCP) Patient Instructions: Anxiety and Panic Attacks Additional Instructions: Drink plenty of liquids Follow-up with your primary care physician in 3-5 days for evaluation of weight loss Return to ER if not getting better Scripts Hydroxyzine Hcl (HYDROXYZINE HCL) 25 Mg Tablet 1 TAB PO QHS PRN for ANXIETY, #15 TAB Prov: ARCELIA TIPTON MD 05/12/19 The HEART Score for CP Pts HEART Score for Chest Pain: HEART Score for Chest Pain Response (Comments) Value History Slighlty/Non-Suspicious 0 ECG Normal 0 Age < 45 0 Risk Factors No Risk Factors 0 Troponin < Normal Limit 0 Total 0 Risk Factors: Risk Factors: DM, Current or recent (<one month) smoker, HTN, HLP, family history of CAD, obesity. Risk Scores: Score 0 - 3: 2.5% MACE over next 6 weeks - Discharge Home Score 4 - 6: 20.3% MACE over next 6 weeks - Admit for Clinical Observation Score 7 - 10: 72.7% MACE over next 6 weeks - Early Invasive Strategies Problem Qualifiers ARCELIA TIPTON MD May 12, 2019 08:03
[2019-05-12 08:18] LABS: BASO % 1 % (0-3); EOS # 0.1 x10^3/uL (0.0-0.7); EOS % 2 % (0-3); HEMATOCRIT 40.5 % (36.0-47.0); HEMOGLOBIN 13.5 g/dL (12.0-15.5); LYMPH % 44 % (24-48); MEAN CORPUSCULAR HEMOGLOBIN 33 pg (25-35); MEAN CORPUSCULAR HGB CONC 33 g/dL (31-37); MEAN CORPUSCULAR VOLUME 99 fL (79-100); MONO # 0.4 x10^3/uL (0.0-1.1); MONO % 8 % (0-9); NEUT % 45 % (31-73); PLATELET COUNT 227 x10^3/uL (140-400); RED BLOOD COUNT 4.07 x10^6/uL (3.50-5.40); RED CELL DISTRIBUTION WIDTH 12.8 % (11.5-14.5); WHITE BLOOD COUNT 4.5 x10^3/uL (4.0-11.0)
--- NOTE | 2019-05-12 08:21 | RAD ---
CHEST PA LATERAL History: Chest pain Comparison: Two-view chest December 31, 2016. Findings: The cardiomediastinal silhouette is normal. Pulmonary vasculature is normal. The lungs are clear. No pleural effusion or pneumothorax is seen. There is no acute bone abnormality. IMPRESSION: No acute cardiopulmonary process. Electronically signed by: Willian Leon MD (05/12/2019 8:17 AM) [id number]
[2019-05-12 08:29] LABS: CREATININE 0.8 mg/dL (0.6-1.0); GFR 102.6; POTASSIUM 3.6 mmol/L (3.5-5.1)
[2019-05-12 08:31] LABS: PROTHROMBIN TIME PATIENT 14.2 SEC (11.7-14.0)
[2019-05-12 08:35] LABS: D-DIMER 0.27 ug/mlFEU (0.00-0.50)
[2019-05-12 08:38] LABS: ALBUMIN 3.5 g/dL (3.4-5.0); TOTAL BILIRUBIN 1.4 mg/dL (0.2-1.0)
--- NOTE | 2019-05-12 08:48 | RAD ---
EXAM: Abdomen sonogram. HISTORY: Pain. TECHNIQUE: Sonographic imaging of the abdomen was performed. COMPARISON: CT dated 01/20/2016. FINDINGS: The liver is normal in size. No focal hepatic lesion is seen. The common bile duct is normal in caliber. The gallbladder, right kidney and inferior vena cava are unremarkable. The pancreas is partially obscured due to bowel gas. IMPRESSION: Unremarkable abdomen sonogram, slightly limited due to bowel gas. Electronically signed by: Meena Velazquez MD (05/12/2019 8:45 AM) [facility]
--- NOTE | 2019-05-12 09:02 | EKG ---
[facility] [address] [place] [address] Test Date: 2019-05-12 Test Time: 07:34:39 Pat Name: GAIL BROWN Department: Room: Gender: F [employer] Hand: : 1990 Requested By: ARCELIA TIPTON Order Number: [id number] Reading MD: Measurements Intervals [place] Rate: 80 P: 38 VT: 138 QRS: 13 QRSD: 84 T: 30 QT: 362 QTc: 421 Interpretive Statements SINUS RHYTHM NO SPECIFIC ECG ABNORMALITIES RI6.01 No previous ECG available for comparison
[2019-05-12 09:48] LABS: BILIRUBIN,URINE NEGATIVE (NEG); CLARITY,URINE CLEAR; COLOR,URINE YELLOW; NITRITE,URINE NEGATIVE (NEG); PROTEIN,URINE NEGATIVE (NEG-TRACE)
[2019-05-12 09:54] LABS: BARBITURATES NEG (NEG); BENZODIAZEPINES NEG (NEG); CANNABINOIDS NEG (NEG); COCAINE NEG (NEG); METHADONE NEG (NEG); OPIATES NEG (NEG); PHENCYCLIDINE NEG (NEG)
[2019-05-12 09:55] LABS: AMPHETAMINE/METHAMPHETAMINE NEG (NEG)
[2019-05-12] MEDS ORDERED: HYDR25TA PO (09:57)
[2019-05-12 10:10] LABS: BACTERIA,URINE 0 /HPF (0-FEW); SQUAMOUS EPITHELIAL CELL,UR MOD /LPF; WBC,URINE RARE /HPF (0-4)
[2019-05-12 10:44] VITALS: BP 105/57
== END 2019-05-12 11:00 | disposition home or self-care (01) ==
LOC: ER 07:25
DX: R07.89 Other chest pain (principal); F41.8 Other specified anxiety disorders; R63.0 Anorexia; R06.02 Shortness of breath; Z98.890 Other specified postprocedural states; Z88.5 Allergy status to narcotic agent; Z79.82 Long term (current) use of aspirin
CPT/HCPCS: 36415; 71046; 76705; 80053; 80307; 81001; 82550; 83690; 83735; 83880; 84484; 85025; 85379; 85610; 93005; 96374; 99285; J2060

== ENCOUNTER 2019-12-25 14:27 | Emergency (ER) | payer OTHER ==
[~2019-12-25] VITALS: Ht 170.2 cm; Wt 72.0 kg
[~2019-12-25 14:27] MED LIST changes: +HYDR25TA PO
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
[2019-12-25 17:15] VITALS: BP 129/60
[2019-12-25] MEDS ORDERED: fentaNYL PF VIAL 100 MCG/2 ML VIAL IM ONE (17:30)
[2019-12-25] MEDS ORDERED: MELO7.5T29 PO (17:35)
[2019-12-25] MEDS ORDERED: CYCL10TA2 PO (17:35)
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
== END 2019-12-25 18:08 | disposition home or self-care (01) ==
LOC: ER 14:27
DX: S13.9XXA Sprain of joints and ligaments of unspecified parts of neck, initial encounter (principal); R51 Headache; M54.6 Pain in thoracic spine; M54.5 Low back pain; Z88.5 Allergy status to narcotic agent; V87.7XXA Person injured in collision between other specified motor vehicles (traffic), initial encounter; Y93.I9 Activity, other involving external motion; Y92.488 Other paved roadways as the place of occurrence of the external cause; Y99.8 Other external cause status
CPT/HCPCS: 70450; 72125; 72128; 72131; 81025; 96372; 99285; J3010

== ENCOUNTER 2021-07-08 05:53 | Emergency (ER) | payer OTHER ==
[~2021-07-08] VITALS: Ht 170.2 cm; Wt 81.8 kg
[~2021-07-08 05:53] MED LIST changes: +CYCL10TA19 PO; -CYCL10TA2 PO; +MELO7.5T29 PO; +NAPR-699 PO; -NAPR250T6 PO
[2021-07-08] MEDS ORDERED: fentaNYL PF VIAL 100 MCG/2 ML VIAL IVP ONE (06:15)
[2021-07-08] MEDS ORDERED: diphenhydrAMINE 50 MG/ML VIAL IVP ONE (06:15)
[2021-07-08] MEDS ORDERED: IV NORMAL SALINE 1000ML BAG 1,000 ML IV ONE (06:15)
[2021-07-08] MEDS ORDERED: METOCLOPRAMIDE HCL 10 MG/2 ML VIAL. IVP ONE (06:15)
--- NOTE | 2021-07-08 06:24 | PHYS DOC ---
Past Medical History Past Medical History: No Pertinent History Additional Past Medical Histor: "high troponin" Past Surgical History: No Surgical History Additional Past Surgical Histo: Left index finger Smoking Status: Never Smoker Alcohol Use: None Drug Use: None Adult General Chief Complaint Chief Complaint: VAGINAL BLEEDING [facility] HPI Patient is a 30 year old female presents emergency department for evaluation of vaginal bleeding in early . Patient says that she has never been before in her life and did not think she could get and her last normal menstrual cycle started on June 02 and ended 5 days later. She says she has had nausea vomiting for the past several months and thought was food poisoning. Patient says that starting this morning she had midline lower abdominal cramping associated with preston-sized blood clots. Patient denies dizziness fevers chills dysuria hematuria vaginal discharge. She says she is healthy and does not take blood thinners. She is in no acute distress with normal vital signs Review of Systems Review of Systems Constitutional: Denies fever or chills [] Eyes: Denies change in visual acuity, redness, or eye pain [] HENT: Denies nasal congestion or sore throat [] Respiratory: Denies cough or shortness of breath [] Cardiovascular: No additional information not addressed in HPI [] GI: + abdominal pain, nausea, vomiting. No bloody stools or diarrhea [] : Denies dysuria or hematuria [] Musculoskeletal: Denies back pain or joint pain [] Integument: Denies rash or skin lesions [] Neurologic: Denies headache, focal weakness or sensory changes [] All other systems were reviewed and found to be within normal limits, except as documented in this note. Current Medications Current Medications Current Medications Medications (Trade) Dose Ordered Sig/Andreina Start Time Stop Time Status Last Admin Dose Admin Diphenhydramine HCl (Benadryl) 25 mg 1X ONCE 07/08/21 06:15 07/08/21 06:17 DC 07/08/21 06:34 25 MG Fentanyl Citrate (Fentanyl 2ml Vial) 50 mcg 1X ONCE 07/08/21 06:15 07/08/21 06:17 DC 07/08/21 06:34 50 MCG Metoclopramide HCl (Reglan Vial) 5 mg 1X ONCE 07/08/21 06:15 07/08/21 06:17 DC 07/08/21 06:35 5 MG Sodium Chloride 1,000 ml @ 1,000 mls/hr 1X ONCE 07/08/21 06:15 07/08/21 07:14 DC 07/08/21 06:15 1,000 MLS/HR Allergies Allergies Allergies Coded Allergies Type Severity Reaction Last Updated Verified hydrocodone Allergy Intermediate 07/08/21 Yes Physical Exam Physical Exam Constitutional: Well developed, well nourished, no acute distress, non-toxic appearance. [] HENT: Normocephalic, atraumatic, bilateral external ears normal, oropharynx moist, no oral exudates, nose normal. [] Eyes: PERRLA, EOMI, conjunctiva normal, no discharge. [] Neck: Normal range of motion, no tenderness, supple, no stridor. [] Cardiovascular:Heart rate regular rhythm, no murmur [] Lungs & Thorax: Bilateral breath sounds clear to auscultation [] Abdomen: Bowel sounds normal, soft, positive suprapubic tenderness to palpation but no rebound or guarding. Skin: Warm, dry, no erythema, no rash. [] Back: No tenderness, no CVA tenderness. [] Extremities: No tenderness, no cyanosis, no clubbing, ROM intact, no edema. [] Neurologic: Alert and oriented X 3, normal motor function, normal sensory function, no focal deficits noted. [] Current Patient Data Vital Signs Vital Signs Date Time Temp Pulse Resp B/P (MAP) Pulse Ox O2 Delivery O2 Flow Rate FiO2 07/08/21 06:34 18 07/08/21 06:11 98.1 79 116/73 (87) 98 Room Air 98.1 Lab Values Laboratory Tests Test 07/08/21 06:40 07/08/21 07:21 White Blood Count 6.8 x10^3/uL (4.0-11.0) Red Blood Count 3.66 x10^6/uL (3.50-5.40) Hemoglobin 12.1 g/dL (12.0-15.5) Hematocrit 36.7 % (36.0-47.0) Mean Corpuscular Volume 100 fL (79-100) Mean Corpuscular Hemoglobin 33 pg (25-35) Mean Corpuscular Hemoglobin Concent 33 g/dL (31-37) Red Cell Distribution Width 13.6 % (11.5-14.5) Platelet Count 272 x10^3/uL (140-400) Neutrophils (%) (Auto) 56 % (31-73) Lymphocytes (%) (Auto) 32 % (24-48) Monocytes (%) (Auto) 8 % (0-9) Eosinophils (%) (Auto) 3 % (0-3) Basophils (%) (Auto) 1 % (0-3) Neutrophils # (Auto) 3.8 x10^3/uL (1.8-7.7) Lymphocytes # (Auto) 2.2 x10^3/uL (1.0-4.8) Monocytes # (Auto) 0.6 x10^3/uL (0.0-1.1) Eosinophils # (Auto) 0.2 x10^3/uL (0.0-0.7) Basophils # (Auto) 0.0 x10^3/uL (0.0-0.2) Maternal Serum HCG Beta Subunit 5152 mIU/mL (0-5) H Sodium Level 136 mmol/L (136-145) Potassium Level 3.6 mmol/L (3.5-5.1) Chloride Level 103 mmol/L (98-107) Carbon Dioxide Level 24 mmol/L (21-32) Anion Gap 9 (6-14) Blood Urea Nitrogen 7 mg/dL (7-20) Creatinine 0.7 mg/dL (0.6-1.0) Estimated GFR (Cockcroft-Gault) 118.1 BUN/Creatinine Ratio 10 (6-20) Glucose Level 112 mg/dL (70-99) H Calcium Level 8.8 mg/dL (8.5-10.1) Total Bilirubin 0.5 mg/dL (0.2-1.0) Aspartate Amino Transferase (AST) 6 U/L (15-37) L Alanine Aminotransferase (ALT) 11 U/L (14-59) L Alkaline Phosphatase 68 U/L (46-116) Total Protein 7.1 g/dL (6.4-8.2) Albumin 3.3 g/dL (3.4-5.0) L Albumin/Globulin Ratio 0.9 (1.0-1.7) L Urine Collection Type Unknown Urine Color (Auto) Colorless Urine Turbidity Clear Urine pH (Auto) 7.0 (<5.0-8.0) Urine Specific [place] 1.012 (1.000-1.030) Urine Protein (Auto) Negative mg/dL (Negative) Urine Glucose (Auto)(UA) Negative mg/dL (Negative) Urine Ketones (Auto) Negative mg/dL (Negative) Urine Blood (Auto) Negative (Negative) Urine Nitrite Negative (Negative) Urine Bilirubin (Auto) Negative (Negative) Urine Urobilinogen (Auto) Normal mg/dL (Normal) Urine Leukocyte Esterase (Auto) Negative (Negative) Urine RBC 0 /HPF (0-2) Urine WBC 0 /HPF (0-4) Urine Squamous Epithelial Cells Occ /LPF Urine Bacteria Few /HPF (0-FEW) Laboratory Tests 07/08/21 06:40 Laboratory Tests 07/08/21 06:40 EKG EKG [] Radiology/Procedures Radiology/Procedures [] Course & Med Decision Making Course & Med Decision Making I will check labs OB ultrasound treat her symptoms and reassess. Patient's pain and nausea improved significantly and her repeat vital signs are normal and her repeat abdominal exam is benign with no focal tenderness rebound or guarding. Patient's blood type is O+ and her ultrasound is indeterminant for viable but there is no signs of ectopic . I told her and wrote her hormone level down and told her she needs a follow-up with an OB or primary care provider within 2 to 3 days for recheck of this hCG level. I told her she can take Tylenol for pain and I will prescribe her Reglan for her nausea. I told her to come back to emergency department with worsening pain fevers bleeding or other concerns. Patient aware and agreeable with plan for discharge and verbalized understanding of the above instructions. Dragon Disclaimer Dragon Disclaimer This electronic medical record was generated, in whole or in part, using a voice recognition dictation system. Departure Departure Impression: Primary Impression: Threatened miscarriage in early Disposition: HOME / SELF CARE / HOMELESS Condition: STABLE Referrals: NO PCP (PCP) HARPER SOTO MD Patient Instructions: Threatened Miscarriage, [id number] Additional Instructions: Tylenol for pain. Drink plenty of fluids. Follow with OB within 2-3 days. Come back with any concerns. Blood type = O+ HCG quant = 5152 Scripts Metoclopramide Hcl (REGLAN) 5 Mg Tablet 1 TAB PO TID PRN for NAUSEA/VOMITING for 5 Days, #15 TAB 0 Refills Take with 25mg of Benadryl. Prov: NATALEE HERNDON DO 07/08/21 NATALEE HERNDON DO Jul 08, 2021 06:24
[2021-07-08 06:52] LABS: BASO % 1 % (0-3); EOS # 0.2 x10^3/uL (0.0-0.7); EOS % 3 % (0-3); HEMATOCRIT 36.7 % (36.0-47.0); HEMOGLOBIN 12.1 g/dL (12.0-15.5); LYMPH # 2.2 x10^3/uL (1.0-4.8); LYMPH % 32 % (24-48); MEAN CORPUSCULAR HEMOGLOBIN 33 pg (25-35); MEAN CORPUSCULAR HGB CONC 33 g/dL (31-37); MEAN CORPUSCULAR VOLUME 100 fL (79-100); MONO # 0.6 x10^3/uL (0.0-1.1); MONO % 8 % (0-9); NEUT # 3.8 x10^3/uL (1.8-7.7); NEUT % 56 % (31-73); PLATELET COUNT 272 x10^3/uL (140-400); RED BLOOD COUNT 3.66 x10^6/uL (3.50-5.40); RED CELL DISTRIBUTION WIDTH 13.6 % (11.5-14.5); WHITE BLOOD COUNT 6.8 x10^3/uL (4.0-11.0)
[2021-07-08 07:04] LABS: CALCIUM 8.8 mg/dL (8.5-10.1); CREATININE 0.7 mg/dL (0.6-1.0); GFR 118.1; POTASSIUM 3.6 mmol/L (3.5-5.1)
--- NOTE | 2021-07-08 07:06 | RAD ---
EXAMINATION: US OB <14 WKS +TV, 07/08/2021 6:37 AM CLINICAL INDICATION: Bleeding, pain in early TECHNIQUE: Grayscale, color and spectral Doppler ultrasound images of the pelvis via transabdominal a nd transvaginal approach. COMPARISON: None. FINDINGS: The uterus measures 8.6 x 4.5 x 3.8 cm. There is a gestational sac in the fundus measuring 0.88 cm, c onsistent with gestational age 5 weeks 5 days. A yolk sac is seen. No pole or cardiac motion vi sualized at this time. The right ovary measures 2.4 x 1.5 x 1.5 cm. Normal blood flow in the right ovary. The left ovary is not visualized. No adnexal mass or free fluid. IMPRESSION: Early intrauterine with gestational age 5 weeks 5 days, too early to confirm vi ability. Recommend follow-up ultrasound. Electronically signed by: Abby Morales MD (07/08/2021 7:03 AM) [facility]
[2021-07-08 07:09] LABS: ALBUMIN 3.3 g/dL (3.4-5.0); ALBUMIN/GLOBULIN RATIO 0.9 (1.0-1.7); TOTAL BILIRUBIN 0.5 mg/dL (0.2-1.0); TOTAL PROTEIN 7.1 g/dL (6.4-8.2)
[2021-07-08 07:56] LABS: BACTERIA,URINE FEW /HPF (0-FEW); RBC,URINE 0 /HPF (0-2); WBC,URINE 0 /HPF (0-4)
[2021-07-08] MEDS ORDERED: METO5TAB55 PO (08:50)
[2021-07-08 09:05] VITALS: BP 140/56
== END 2021-07-08 09:12 | disposition home or self-care (01) ==
LOC: ER 05:53
DX: O20.0 Threatened abortion (principal); Z3A.01 Less than 8 weeks gestation of pregnancy; Z88.5 Allergy status to narcotic agent
CPT/HCPCS: 36415; 76801; 80053; 81001; 84702; 85025; 86850; 86900; 86901; 96361; 96374; 96375; 99285; J1200; J2765; J3010; J7030